=== PATIENT | female | born 1990 | race African-American/Black ===

== ENCOUNTER 2016-11-26 12:43 | Emergency (ER) | payer OTHER ==
[~2016-11-26] VITALS: Ht 157.5 cm; Wt 65.8 kg
[~2016-11-26 12:43] MED LIST: CENTRUM SILVER1 EAC4 PO; DESYREL100 MG PO; FOLIC ACID1 MG PO; HYDREA 500 MG500 M1 PO; LUTERA1 EACH PO; MS CONTIN15 MG PO; NEXIUM40 MG PO; OMEPRAZOLE10 MG PO; OXYCODONE HCL 55 MG PO; OXYCONTIN20 MG PO; PERCOCET 10-321 EACH; PRILOSEC40 MG PO
[2016-11-26] MEDS ORDERED: PHENERGAN 25 MG25 M1 PO (14:21)
[2016-11-26] MEDS ORDERED: OMEPRAZOLE 20 M20 M1 PO (14:21)
[2016-11-26 14:44] LABS: ABSOLUTE RETIC COUNT 0.0663 10^6/uL; OBSERVED RETIC COUNT 2.43 % (0.6-2.6)
[2016-11-26 15:12] LABS: HEMATOCRIT 30.3 % (37.0-47.0); HEMOGLOBIN 10.5 gm/dL (12.0-15.0); MCH 38.5 pg (26.0-34.0); MCHC 34.6 g/dL (28.0-37.0); MCV 111.4 fL (80.0-100.0); RBC 2.72 mil/uL (4.20-5.00); RDW 18.2 % (10.5-14.5)
[2016-11-26 15:35] LABS: URINE BILIRUBIN NEGATIVE (Negative); URINE BLOOD 3+ (Negative); URINE COLOR YELLOW; URINE GLUCOSE-RANDOM* NEGATIVE (Negative); URINE KETONES NEGATIVE (Negative); URINE NITRITE NEGATIVE (Negative); URINE PROTEIN (DIPSTICK) NEGATIVE (Negative); URINE UROBILINOGEN 0.2 E.U./dl (0.2-1.0)
[2016-11-26 15:42] LABS: SQUAMOUS 4-10 Moderate /LPF (0-3)
[2016-11-26 15:43] LABS: BACTERIA 1-9 Few /HPF (None Seen); CASTS None Seen /LPF (None Seen); CRYSTALS None Seen /LPF (None Seen); URINE RBC 3-10 Few /HPF (0-2); URINE WBC None Seen /HPF (0-5)
[2016-11-26] MEDS ORDERED: PERCOCET 5-3251 EACH PO (15:47)
[2016-11-26 16:17] VITALS: BP 121/78
== END 2016-11-26 17:04 | disposition home or self-care (01) ==
LOC: ER 12:43
PROVIDERS: Emergency Medicine; Nurse Practitioner
DX: M54.5 Low back pain (principal); D57.1 Sickle-cell disease without crisis; K21.9 Gastro-esophageal reflux disease without esophagitis; F12.10 Cannabis abuse, uncomplicated; Z87.891 Personal history of nicotine dependence

== ENCOUNTER 2018-09-22 15:38 | Emergency (ER) | payer OTHER ==
[~2018-09-22] VITALS: Ht 157.5 cm; Wt 68.0 kg
[~2018-09-22 15:38] MED LIST changes: +OMEPRAZOLE 20 M20 M1 PO; +PERCOCET 5-3251 EACH PO; +PHENERGAN 25 MG25 M1 PO
[2018-09-22 16:18] LABS: URINE BILIRUBIN NEGATIVE (Negative); URINE BLOOD NEGATIVE (Negative); URINE CLARITY CLEAR; URINE COLOR YELLOW; URINE GLUCOSE-RANDOM* NEGATIVE (Negative); URINE KETONES NEGATIVE (Negative); URINE LEUKOCYTES-REFLEX NEGATIVE (Negative); URINE NITRITE-REFLEX NEGATIVE (Negative); URINE PROTEIN (DIPSTICK) NEGATIVE (Negative); URINE SPECIFIC GRAVITY 1.015 (1.005-1.035); URINE UROBILINOGEN 0.2 E.U./dl (0.2-1.0)
[2018-09-22 17:51] LABS: HEMOGLOBIN 11.1 gm/dL (12.0-15.0)
[2018-09-22 17:53] LABS: HEMATOCRIT 30.2 % (37.0-47.0); MCH 33.9 pg (26.0-34.0); MCHC 36.7 g/dL (28.0-37.0); MCV 92.4 fL (80.0-100.0); PLATELET COUNT 190 thou/uL (150-400); RBC 3.27 mil/uL (4.20-5.00); RDW 16.6 % (10.5-14.5); WBC 8.6 thou/uL (4.0-11.0)
[2018-09-22 17:59] LABS: CREATININE 0.7 mg/dL (0.6-1.0); POTASSIUM 3.5 mmol/L (3.5-5.1)
[2018-09-22 18:00] LABS: CALCIUM 9.3 mg/dL (8.5-10.1)
[2018-09-22 18:04] LABS: ABSOLUTE RETIC COUNT 0.1039 10^6/uL; OBSERVED RETIC COUNT 3.18 % (0.6-2.6)
[2018-09-22 18:19] LABS: ANISOCYTOSIS 2+
[2018-09-22 18:20] LABS: HYPOCHROMASIA SLIGHT; POLYCHROMASIA OCCASIONAL
[2018-09-22 18:22] LABS: TARGET CELLS 1+
[2018-09-22] MEDS ORDERED: OXYCODONE HCL10 MG PO (19:34)
[2018-09-22 19:49] VITALS: BP 124/59
== END 2018-09-22 19:50 | disposition home or self-care (01) ==
LOC: ER 15:38
PROVIDERS: Emergency Medicine; Physician Assistant
DX: D57.00 Hb-SS disease with crisis, unspecified (principal); K21.9 Gastro-esophageal reflux disease without esophagitis; Z79.899 Other long term (current) drug therapy; Z86.2 Personal history of diseases of the blood and blood-forming organs and certain disorders involving the immune mechanism

== ENCOUNTER 2018-10-12 11:58 | Emergency (ER) | payer OTHER ==
[~2018-10-12] VITALS: Ht 157.5 cm; Wt 68.0 kg
[~2018-10-12 11:58] MED LIST changes: +OXYCODONE HCL10 MG PO
[2018-10-12] MEDS ORDERED: NEURONTIN250 MG/5 M PO (13:17)
[2018-10-12 15:05] LABS: HEMATOCRIT 31.1 % (37.0-47.0); MCH 32.9 pg (26.0-34.0); MCHC 35.3 g/dL (28.0-37.0); MCV 93.4 fL (80.0-100.0); PLATELET COUNT 269 thou/uL (150-400); RBC 3.34 mil/uL (4.20-5.00); RDW 16.7 % (10.5-14.5); WBC 7.2 thou/uL (4.0-11.0)
[2018-10-12 15:13] LABS: ABSOLUTE RETIC COUNT 0.1137 10^6/uL; OBSERVED RETIC COUNT 3.45 % (0.6-2.6)
[2018-10-12 15:50] LABS: ABSOLUTE NEUTROPHILS 3.7 thou/uL (1.4-8.2); ANISOCYTOSIS 1+; ATYPICAL LYMPHS 3 %
[2018-10-12 15:51] LABS: TARGET CELLS 3+
[2018-10-12] MEDS ORDERED: OXYCODONE HCL10 MG PO (16:44)
[2018-10-12 16:54] VITALS: BP 120/78
== END 2018-10-12 16:55 | disposition home or self-care (01) ==
LOC: ER 11:58
PROVIDERS: Student in an Organized Health Care Education/Training Program
DX: D57.00 Hb-SS disease with crisis, unspecified (principal); K21.9 Gastro-esophageal reflux disease without esophagitis; Z86.2 Personal history of diseases of the blood and blood-forming organs and certain disorders involving the immune mechanism; Z87.891 Personal history of nicotine dependence